=== PATIENT | female | born 1980 | race Caucasian/White ===

== ENCOUNTER 2017-05-05 03:17 | Emergency (ER) | payer SELFPAY ==
[2017-05-05 03:17] VITALS: BMI 27.8
[2017-05-05] MEDS ORDERED: Sodium Chloride 0.9% 50 ML IV ONE (04:30)
--- NOTE | 2017-05-05 05:20 | C.PDOC ---
History Of Present Illness 37 y/o female presents to the ED for evaluation of a right-sided headache which had a gradual onset over the past 4 days. Patient notes the headache radiates to her right occipital area and neck and is associated with nausea and photophobia. Patient notes occasionally taking 400mg Ibuprofen with no relief. Patient denies fever, chills, neck stiffness. pt has had similar headaches before. Time Seen by Provider: 05/05/17 03:46 Chief Complaint (Nursing): Headache History Per: Patient History/Exam Limitations: no limitations Onset/Duration Of Symptoms: Days (4), Gradual Current Symptoms Are (Timing): Still Present Quality: Aching Associated Symptoms: Photophobia, Nausea. denies: Vomiting Additional History Per: Patient Past Medical History Reviewed: Historical Data, Nursing Documentation, Vital Signs Vital Signs: Last Vital Signs Temp 98.7 F 05/05/17 05:41 Pulse 61 05/05/17 05:41 Resp 18 05/05/17 05:41 BP 124/82 05/05/17 05:41 Pulse Ox 98 05/05/17 06:06 - Medical History PMH: HTN (gestational htn) Surgical History: No Surg Hx Family History: States: Unknown Family Hx - Social History Hx Tobacco Use: No Hx Alcohol Use: No Hx Substance Use: No - Immunization History Hx Tetanus Toxoid Vaccination: No Hx Influenza Vaccination: No Hx Pneumococcal Vaccination: No Review Of Systems Constitutional: Negative for: Fever, Chills Eyes: Positive for: Other (+photophobia) Gastrointestinal: Positive for: Nausea. Negative for: Vomiting Musculoskeletal: Negative for: Neck Pain (stiffness) Neurological: Positive for: Headache, Other (no meningeal symptoms. ). Negative for: Weakness, Numbness, Altered Mental Status Physical Exam - Physical Exam Appears: Non-toxic, No Acute Distress, Other (uncomfortable) Skin: Normal Color, Warm, Dry Head: Atraumatic, Normacephalic Eye(s): bilateral: Normal Inspection, PERRL, EOMI, Other (no nystagmus ) Oral Mucosa: Moist Neck: Normal ROM, Supple, Other (no meningeal signs) Extremity: Normal ROM, Capillary Refill (less than 2 seconds ) Neurological/Psych: Oriented x3, Normal Speech, Normal Cognition, Normal Cranial Nerves, Normal Motor, Normal Sensation Gait: Steady ED Course And Treatment O2 Sat by Pulse Oximetry: 98 (on RA) Pulse Ox Interpretation: Normal Medical Decision Making Medical Decision Making: Impression: 37y/o female with headache Plan: * labs * Reglan IV * Tylenol PO * reassess and disposition Progress: . Patient received Reglan IV and Tylenol PO. Patient reports pain mostly resolved after IV reglan; will give tylenol and re- eval. 558 am pt reports headache resolved, will d/c home with recommendation to keep headaceh diary and f;/u with neurology Disposition Counseled Patient/Family Regarding: Diagnosis, Need For Followup - Disposition Referrals: Joaquín Ramirez MD [Staff Provider] - Disposition: HOME/ ROUTINE Disposition Time: 05:59 Condition: IMPROVED Additional Instructions: Por favor, mantenga el diario de dolor de abdulaziz. Por favor, siga con el Dr. Bustos (neurlogo) en la prxima semana para discutir vikram frecuentes michaela de abdulaziz. Vuelva al ER para cualquier sntoma que empeora. Instructions: Acute Headache (ED) Forms: Gen Discharge Inst Malay, [facility] (Malay), Work Excuse - Clinical Impression Clinical Impression: Headache - PA / [employer] / Resident Statement MD/DO has reviewed & agrees with the documentation as recorded. - Scribe Statement The provider has reviewed the documentation as recorded by the Scribe (Lo Gonzales) All medical record entries made by the Scribe were at my direction and personally dictated by me. I have reviewed the chart and agree that the record accurately reflects my personal performance of the history, physical exam, medical decision making, and the department course for this patient. I have also personally directed, reviewed, and agree with the discharge instructions and disposition.
[2017-05-05 05:42] VITALS: BP 124/82; PULSE 61; RESP 18; TEMP 98.7
[2017-05-05 05:47] VITALS: O2SAT 98
== END 2017-05-05 06:11 | disposition home or self-care (01) ==
LOC: C.ER 03:17
DX: R51 Headache (principal)
CPT/HCPCS: 96374; 99285; J2765